=== PATIENT | female | born 1955 | race Caucasian/White ===

== ENCOUNTER → 2016-07-16 | Outpatient (CLI) | payer OTHER ==
[~2016-07-16] MED LIST: PHENERGAN 25MG.25 M1 PO
--- NOTE | 2016-07-17 08:18 | RADIOLOGY REPORT PS360 ---
US CHEST CLINICAL INDICATION: LEFT CHEST WALL MASS ORDERING PHYSICIAN: Karen Thompson MD PATIENT AGE: 61 years COMPARISON: None FINDINGS: The patient reports a palpable abnormality at the sternoclavicular junction. This area appears to be hypertrophy of the sternoclavicular joint. However, just medial to this region is a 1 x 0.5 cm complex nodular region which has central decreased echoes and increased echogenicity peripherally. Etiology is indeterminate. Consider CT for more thorough evaluation. IMPRESSION: 1. Probable abnormality is probably related to prominent sternoclavicular joint. 2. Complex echogenicity more medial to the palpable region etiology indeterminate and incompletely evaluated by ultrasound. CT may be of further value.
--- NOTE | 2016-07-18 09:35 | RADIOLOGY REPORT PS360 ---
DIG MAMM-SCREEN ALFONSO W/CAD CAD Screening COMPARISON: None, patient had previous mammograms at [facility] but they're not available for review INDICATION: History of breast cancer the patient's mother diagnosed after menopause TECHNIQUE: Standard CC and MLO images were obtained. R2 CAD reviewed. FINDINGS: Diffuse heterogenic fibroglandular densities are seen throughout both breasts and the findings are bilateral and symmetrical. There is no suspicious lesion in either breast and no suspicious microcalcifications. IMPRESSION: Moderate heterogenic breast density with no suspicious lesion seen recommend yearly follow-up BI-RADS CATEGORY: 1_Negative RECOMMENDED FOLLOWUP: 12M 12 MONTH FOLLOW-UP (A letter has been sent to the patient regarding results of the study.)
--- NOTE | 2016-07-18 09:35 | RADIOLOGY REPORT PS360 ---
DIG MAMM-SCREEN ALFONSO W/CAD CAD Screening COMPARISON: None, patient had previous mammograms at [facility] but they're not available for review INDICATION: History of breast cancer the patient's mother diagnosed after menopause TECHNIQUE: Standard CC and MLO images were obtained. R2 CAD reviewed. FINDINGS: Diffuse heterogenic fibroglandular densities are seen throughout both breasts and the findings are bilateral and symmetrical. There is no suspicious lesion in either breast and no suspicious microcalcifications. IMPRESSION: Moderate heterogenic breast density with no suspicious lesion seen recommend yearly follow-up BI-RADS CATEGORY: 1_Negative RECOMMENDED FOLLOWUP: 12M 12 MONTH FOLLOW-UP (A letter has been sent to the patient regarding results of the study.)
== END ==
LOC: RAD 09:00
DX: Z12.31 Encounter for screening mammogram for malignant neoplasm of breast (principal); R22.2 Localized swelling, mass and lump, trunk
CPT/HCPCS: G0202

== ENCOUNTER → 2016-07-19 | Outpatient (CLI) | payer OTHER ==
[2016-07-19 08:21] LABS: HEMOGLOBIN 14.2 g/dL (12.2-16.2); LYMPH # 2.5 K/mm3 (0.7-4.5); LYMPH % 43.3 % (10-50.0)
--- NOTE | 2016-07-19 09:38 | RADIOLOGY REPORT PS360 ---
CHEST(2 VIEWS-NOT PORTABLE) HISTORY: TOBACCO USE ORDERING PHYSICIAN: : PATIENT AGE: 61 years COMPARISON: None available FINDINGS: The cardiomediastinal silhouette and pulmonary vascularity are within normal limits. Hyperinflation with attenuation of peripheral pulmonary vessels consistent with obstructive chronic bronchitis. Old granulomatous disease. No acute bony abnormalities. IMPRESSION: COPD, no acute finding
[2016-07-19 09:39] LABS: BUN 17 mg/dL (7-18)
[2016-07-19 09:51] LABS: GFR (ESTIMATED) 101 ML/MIN (59-)
== END ==
LOC: RAD 07:54 → LAB 07:54
PROVIDERS: Family Medicine
DX: Z00.00 Encounter for general adult medical examination without abnormal findings (principal); Z72.0 Tobacco use